=== PATIENT | male | born 1985 | race Hispanic/Latino ===

== ENCOUNTER 2023-12-14 02:47 | Emergency (ER) | payer SELFPAY ==
[2023-12-14] MEDS ORDERED: LIDOCAINE 1% 20 ML MDV ONE (02:59)
[2023-12-14] MEDS ORDERED: AMOX/K CLAV 875 MG TAB ONE (03:36)
--- NOTE | 2023-12-14 03:44 | EDPHYS ---
Physician Documentation [facility] Name: Jose F Barbour Age: 38 yrs Sex: Male : 1985 Arrival Date: 12/14/2023 Time: 02:47 Bed 5 Private MD: ED Physician HPI: 12/13 02:57 This 38 yrs old Male presents to ER via Unassigned with complaints of ec2 Laceration To Hand. 02:57 Patient sustained an injury to the palmar aspect of the left hand approximately the ec2 fifth metacarpal region. States that he was fishing and subsequently the fin of the fish injured the palmar aspect. Patient reports no other concerns. Last tetanus shot 1.5 years ago. Injury occurred just prior to arrival.. Historical: - Allergies: 02:59 No Known Allergies; jb4 - PMHx: 02:59 HTN; bells palsy; jb4 - PSHx: 02:59 Right hand; Right ACL; jb4 - Immunization history:: Adult Immunizations up to date, Last tetanus immunization: up to date < 5 years ago. - Infectious Disease History:: Denies. - Social history:: Smoking status: Patient denies any tobacco usage or history of. Patient uses alcohol, only on a social basis. ROS: 02:57 Constitutional: as per hpi ec2 Exam: 02:57 Constitutional: GEN: NAD Head: atraumatic Eyes: EOMI Ears: External ears are ec2 normal. CV: regular rate LUNGS: no respiratory distress ABD: non-distended SKIN: Small 0.5 cm laceration to the palmar aspect of the left fifth metacarpal region. No deformities. MSK: no evidence of trauma NEURO: moves all extremities equally Vital Signs: 02:55 BP 95 / 68; Pulse 56; Resp 16; Temp 96.8(TE); Pulse Ox 100% on R/A; Weight 99.79 kg jb4 (R); Height 5 ft. 7 in. ; Pain 6/10; 03:41 BP 112 / 50; Pulse 69; Resp 17 S; Pulse Ox 100% on R/A; ha1 03:54 BP 112 / 50; Pulse 72; Resp 19; Temp 97.5(TE); Pulse Ox 96% on R/A; Pain 1/10; tm6 02:55 Body Mass Index 34.46 (99.79 kg, 170.18 cm) jb4 02:55 Pain Scale: Adult jb4 03:54 Pain Scale: Adult tm6 Procedures: 02:58 Nerve block: (regional) of inner aspect of left palm Medication: Lidocaine 1% without ec2 epinephrine Amount: 10 mls were injected, Effect: the patient's symptoms are improved, Set up for procedure. Performed by Good Holley MD Patient tolerated well. MDM: 02:51 Patient medically screened. ec2 02:57 Data reviewed: vital signs. ED course: Patient arrives today for injury to the palm ec2 aspect of left hand. Examination remarkable for skin findings as above. Will obtain radiograph, inject local lidocaine to help with the pain.. 03:41 ED course: Hand x-ray independently reviewed and interpreted by me, shows no retained ec2 foreign body, no bony injury. On reassessment patient is well-appearing in no acute distress. Will discharge home. Return precautions given. Will keep the patient on antibiotics given the marine exposure.. 12/13 02:57 Order name: Hand Left 3 View XRAY ec2 12/13 03:01 Order name: Wound Care; Complete Time: 03:42 ec2 12/13 03:01 Order name: Wound dressing; Complete Time: 03:42 ec2 Administered Medications: 03:03 Drug: Lidocaine Infiltration (1 %) 20 ml 20 ml Infiltration once; to bedside {Note: ha1 administered by Dr. Holley .} Volume: 20 ml; Route: Infiltration; 03:41 Follow up: Response: No adverse reaction ha1 03:41 Drug: Amoxicillin-Clavulanate PO 875 mg PO once Route: PO; ha1 Disposition Summary: 12/14/23 03:43 Discharge Ordered Notes: Location: Home ec2 Condition: Stable ec2 Diagnosis - Laceration without foreign body of left hand ec2 Followup: ec2 - With: Private Physician - When: - Reason: Re-evaluation by your physician Discharge Instructions: - Discharge Summary Sheet ec2 Forms: - Medication Reconciliation Form ec2 - Thank You Letter ec2 - Antibiotic Education ec2 - Prescription Opioid Use ec2 - Patient Portal Instructions ec2 - Leadership Thank You Letter ec2 Prescriptions: - Augmentin 875-125 mg Oral tablet - take 1 tablet ORAL route every 12 hours for 7 days; 14 tablet; Refills: 0, ec2 Product Selection Permitted Signatures: Dispatcher [employer] Juan Pablo Steen, RN RN jb4 Lupe Bonilla RN RN ha1 Good Holley MD MD ec2 Corrections: (The following items were deleted from the chart) 02:58 02:58 Hand Left 3 View+RAD.RAD.BRZ ordered. EDMS EDMS
--- NOTE | 2023-12-14 03:44 | ER ---
Nurse's Notes [facility] Name: oJse F Barbour Age: 38 yrs Sex: Male : 1985 Arrival Date: 12/14/2023 Time: 02:47 Bed 5 Private MD: Diagnosis: Laceration without foreign body of left hand Presentation: 12/13 02:55 Chief complaint: Patient states: I was fishing, caught a cat fish, tried to let it go jb4 and when I grabbed it, its jono stuck into my hand. When pulling it out, it felt like it pulled some flesh out and like some of it may still be in there. My left pinky and ring finger are going numb. Coronavirus screen: At this time, the client does not indicate any symptoms associated with coronavirus-19. Ebola Screen: No symptoms or risks identified at this time. Complicating Factors: The type of wound is a puncture. Initial Sepsis Screen: Does the patient meet any 2 criteria? No. Patient's initial sepsis screen is negative. Does the patient have a suspected source of infection? No. Patient's initial sepsis screen is negative. Risk Assessment: Do you want to hurt yourself or someone else? Patient reports no desire to harm self or others. Onset of symptoms was December 14, 2023. Transition of care: patient was not received from another setting of care. 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 - Infectious Disease History:: Denies. - Social history:: Smoking status: Patient denies any tobacco usage or history of. Patient uses alcohol, only on a social basis. Screenin:00 [facility] ED Fall Risk Assessment (Adult) History of falling in the last 3 months, tm6 including since admission No falls in past 3 months (0 pts) Confusion or Disorientation No (0 pts) Intoxicated or Sedated No (0 pts) Impaired Gait No (0 pts) Mobility Assist Device Used No (0 pt) Altered Elimination No (0 pt) Score/Fall Risk Level 0 - 2 = Low Risk Oriented to surroundings, Maintained a safe environment. Abuse screen: Denies threats or abuse. Denies injuries from another. Nutritional screening: No deficits noted. Tuberculosis screening: No symptoms or risk factors identified. Assessment: 03:00 General: Appears uncomfortable, Behavior is calm, cooperative. Pain: Complains of pain tm6 in inner aspect of left palm Pain currently is 6 out of 10 on a pain scale. Quality of pain is described as stabbing, numb, Is continuous. Neuro: Level of Consciousness is awake, alert, obeys commands, Oriented to person, place, time, situation, Reports numbness in palmar aspect of distal phalanx of left little finger, palmar aspect of middle phalanx of left little finger, palmar aspect of proximal phalanx of left little finger, palmar aspect of distal phalanx of left ring finger, palmar aspect of middle phalanx of left ring finger and palmar aspect of proximal phalanx of left ring finger. Cardiovascular: Capillary refill < 3 seconds Patient's skin is warm and dry. Respiratory: Airway is patent Respiratory effort is even, unlabored, Respiratory pattern is regular, symmetrical. GI: No signs and/or symptoms were reported involving the gastrointestinal system. Abdomen is flat, non-distended. : No signs and/or symptoms were reported regarding the genitourinary system. EENT: No signs and/or symptoms were reported regarding the EENT system. Derm: Wound noted inner aspect of left palm Wound is approximately 1 cm in length. Musculoskeletal: No signs and/or symptoms reported regarding the musculoskeletal system. Injury Description: Laceration sustained to inner aspect of left palm is 0.5 to 2.5 cm long, not bleeding, is bleeding a small amount. 03:55 Reassessment: Patient and/or family updated on plan of care and expected duration. Pain tm6 level reassessed. Patient is alert, oriented x 3, equal unlabored respirations, skin warm/dry/pink. Vital Signs: 02:55 BP 95 / 68; Pulse 56; Resp 16; Temp 96.8(TE); Pulse Ox 100% on R/A; Weight 99.79 kg jb4 (R); Height 5 ft. 7 in. ; Pain 6/10; 03:41 BP 112 / 50; Pulse 69; Resp 17 S; Pulse Ox 100% on R/A; ha1 03:54 BP 112 / 50; Pulse 72; Resp 19; Temp 97.5(TE); Pulse Ox 96% on R/A; Pain 1/10; tm6 02:55 Body Mass Index 34.46 (99.79 kg, 170.18 cm) jb4 02:55 Pain Scale: Adult jb4 03:54 Pain Scale: Adult tm6 ED Course: 02:49 Patient arrived in ED. jj6 02:50 Good Holley MD is Attending Physician. ec2 02:59 Triage completed. jb4 02:59 Arm band placed on right wrist. jb4 03:00 Adam Perkins, RENE is Primary Nurse. tm6 03:00 Patient has correct armband on for positive identification. Placed in gown. Bed in low tm6 position. Call light in reach. Side rails up X 1. Provided Education on: plan of care. Client placed on continuous cardiac and pulse oximetry monitoring. NIBP monitoring applied. Pulse ox on. NIBP on. Door closed. Noise minimized. 03:00 Dressings: Kerlix Tegaderm X 2; left hand 4X4s. ha1 03:44 Wound care: to laceration located on left hand was cleaned with soap and water, ha1 debrided using Betadine scrub, irrigated with normal saline, dressed with 4X4s, Kerlix, ABD pads. 03:55 No provider procedures requiring assistance completed. Patient did not have IV access tm6 during this emergency room visit. 03:59 Hand Left 3 View XRAY In Process Unspecified. EDMS Administered Medications: 03:03 Drug: Lidocaine Infiltration (1 %) 20 ml 20 ml Infiltration once; to bedside {Note: ha1 administered by Dr. Holley .} Volume: 20 ml; Route: Infiltration; 03:41 Follow up: Response: No adverse reaction ha1 03:41 Drug: Amoxicillin-Clavulanate PO 875 mg PO once Route: PO; ha1 Medication: 03:00 VIS not applicable for this client. tm6 Outcome: 03:43 Discharge ordered by . ec2 03:55 Discharged to home ambulatory, with family, tm6 03:55 Condition: stable 03:55 Discharge instructions given to patient, family, Instructed on discharge instructions, follow up and referral plans. medication usage, Demonstrated understanding of instructions, follow-up care, medications, Prescriptions given X 1, 03:56 Patient left the ED. tm6 Signatures: Dispatcher [employer] Juan Pablo Steen, RN RN jb4 Hanna Zabala jj6 Lupe Bonilla RN RN ha1 Good Holley MD MD ec2 Adam Perkins RN RN tm6 Corrections: (The following items were deleted from the chart) 03:01 02:55 Resp 16bpm; 99.79 kg Reported; Height 5 ft. 7 in.; BMI: 34.4; Pain 6/10, Adult; jb4 jb4 03:24 02:55 BP 95 / 68; Pulse 56bpm; Resp 16bpm; Pulse Ox 100% RA; 99.79 kg Reported; Height jb4 5 ft. 7 in.; BMI: 34.4; Pain 6/10, Adult; jb4
[2023-12-14 04:18] VITALS: BP 112/50; TEMP 97.5; O2SAT 96
--- NOTE | 2023-12-14 22:02 | RAD REPORT ---
EXAM DESCRIPTION: RAD - Hand Left 3 View - 12/14/2023 3:57 am CLINICAL HISTORY: Male, 38 years old, hand injury, dorsum 5th MC area TECHNIQUE: 3 views COMPARISON: None. FINDINGS: No acute fracture or dislocation. Normal osseous mineralization. Joint spaces and articula r surfaces are preserved. Soft tissue swelling of the hypothenar eminence with small gas foci. IMPRESSION: Soft tissue injury without acute osseous finding of the left hand. Electronically signed by: Fletcher Fontanez MD 12/14/2023 05:20 AM CDT Due to temporary technical issues with the PACS/Fluency reporting system, reports are being signed by the in house radiologists without review as a courtesy to insure prompt reporting. The interpreting radiologist is fully responsible for the content of the report.
== END 2023-12-14 03:56 | disposition home or self-care (01) ==
LOC: ER 02:47
DX: S61.412A Laceration without foreign body of left hand, initial encounter (principal)
CPT/HCPCS: 99284; J2001